=== PATIENT | female | born 1960 | race Hispanic/Latino ===

== ENCOUNTER 2024-12-02 09:54 | Emergency (ER) | payer BC ==
[~2024-12-02] VITALS: Ht 165.1 cm; Wt 85.3 kg
--- NOTE | 2024-12-02 10:08 | EKG ---
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
[2024-12-02 10:29] LABS: IMMATURE GRANULOCYTE ABSOLUTE 0.01 K/uL (0-1); NUCLEATED RED BLOOD CELLS 0.0 % (0.0-0.19); PLATELET COUNT (AUTO) 250 K/uL (130-400); RED BLOOD CELL COUNT(AUTO) 5.39 MIL/uL (4.00-5.50); RED CELL DISTRIBUTION WIDTH 11.9 % (11.0-15.5); WHITE BLOOD COUNT (AUTO) 8.0 K/uL (4.8-10.8)
[2024-12-02 10:37] LABS: APPEARANCE,URINE CLEAR (CLEAR); GLUCOSE, URINE (UA) >=1000 mg/dL (NEGATIVE); LEUKOCYTE ESTERASE ,URINE NEGATIVE Leu/uL (NEGATIVE); NITRATE,URINE NEGATIVE (NEGATIVE); OCCULT BLOOD,URINE NEGATIVE (NEGATIVE)
--- NOTE | 2024-12-02 10:40 | ERN ---
ED Note History of Present Illness Stated Complaint: ABD PAIN Chief Complaint: Abdominal Pain Time Seen by MD: 10:28 Time Seen by Midlevel: 10:10 Dictation: 64-year-old female with a history of hypertension, diabetes, cholesterol coming in with complaints of right lower quadrant pain onset Saturday. Patient states however now pain is more on the right glute radiating down her right leg. Patient states she was seen at an urgent care on Saturday at three in the morning and where they did a CT scan but told her they did not find anything. patient is denying any abdominal pain. However patient states pain is still there, also mentioned she has not had a bowel movement since Saturday, took a laxative last night and still has not had a bowel movement. Patient denies having any fever, nausea, vomiting, diarrhea, dysuria or hematuria. Allergies: Coded Allergies: iodine (Unverified Allergy, Unknown, SHORTNESS OF BREATH, 12/02/24) Past Medical History Past Medical History: Diabetes-Type II, High Cholesterol, Hypertension Surgical History: Hysterectomy Review of System Dictation Constitutional: Negative for fever,chills, and weight loss Eyes: Negative for injury, pain,redness, and discharge ENT: Negative for injury,pain or swelling Cardiovascular: Negative for chest pain, palpitations, and edema Respiratory: Negative for shortness of breath, cough, and wheezing, Abdomen/GI: Negative for abdominal pain, nausea, vomiting, diarrhea, and constipation Back: Negative for injury and pain : Negative for injury, bleeding and discharge MS/Extremity: Negative for injury and deformity, right upper glute pain radiating down the right leg Skin: Negative for rash, and discoloration Neuro: Negative for headache, weakness, numbness, tingling, and seizure Psych: Negative for suicide ideation, homicidal ideation, and hallucinations Review of Systems: was completed Initial Vital Sign VS Vital Signs Date Time Temp Pulse Resp B/P (MAP) Pulse Ox O2 Delivery O2 Flow Rate FiO2 12/02/24 09:56 98.4 84 18 181/96 98 Room Air 0 12/02/24 12:35 21 Physical Exam Dictation General: awake, alert, NAD Head/Face: Normocephalic, atraumatic Eyes: PERRL, EOMI, vision at baseline ENT: oral cavity clear, TMs clear, no signs of infection Neck: Trachea midline, supple, no nuchal rigidity Cardiovascular: RRR, normal S1/S2, No MRGs, no JVD Respiratory: CTAB, no respiratory distress, No rales or wheezes Abdomen: Soft, non-tender, non-distended, normal bowel sounds, no guarding or rebound. Skin: Warm, dry, normal turgor, no rash MS/Extremity: Pulses equal, no cyanosis, neurovascular intact, FROM Neuro: COAx4, GCS 15, strength 5/5, CN 2-12 intact, normal cerebellar exam, normal gait, Psych: Normal behavior, mood, and affect normal Results (Laboratory/Radiology) Laboratory/Radiology Laboratory Tests Test 12/02/24 10:22 12/02/24 10:23 White Blood Count 8.0 K/uL (4.8-10.8) Red Blood Count 5.39 MIL/uL (4.00-5.50) Hemoglobin 16.7 g/dL (12.0-16.0) H Hematocrit 47.0 % (36-48) Mean Corpuscular Volume 87.2 fL (79-99) Mean Corpuscular Hemoglobin 31.0 pg (27.0-33.0) Mean Corpuscular Hemoglobin Concent 35.5 g/dL (32.0-36.0) Red Cell Distribution Width 11.9 % (11.0-15.5) Platelet Count 250 K/uL (130-400) Mean Platelet Volume 11.0 fL (7.5-10.5) H Immature Granulocyte % (Auto) 0.1 % (0-1) Neutrophils (%) (Auto) 57.4 % (40.0-77.0) Lymphocytes (%) (Auto) 32.8 % (21.0-51.0) Monocytes (%) (Auto) 6.1 % (3.0-13.0) Eosinophils (%) (Auto) 2.7 % (0.0-8.0) Basophils (%) (Auto) 0.9 % (0.0-5.0) Neutrophils # (Auto) 4.6 K/uL (1.8-7.7) Lymphocytes # (Auto) 2.6 K/uL (1.0-4.8) Monocytes # (Auto) 0.5 K/uL (0.1-1.0) Eosinophils # (Auto) 0.22 K/uL (0.00-0.70) Basophils # (Auto) 0.07 K/uL (0.00-0.20) Absolute Immature Granulocyte (auto 0.01 K/uL (0-1) Nucleated Red Blood Cells 0.0 % (0.0-0.19) Sodium Level 135 mmol/L (136-145) L Potassium Level 4.7 mmol/L (3.5-5.1) Chloride Level 99 mmol/L (101-111) L Carbon Dioxide Level 30 mmol/L (21-32) Blood Urea Nitrogen 14 mg/dL (7-18) Creatinine 0.8 mg/dL (0.5-1.0) Glomerular Filtration Rate Calc 82 mL/min (>90) Random Glucose 245 mg/dL (70-105) H Total Calcium 9.6 mg/dL (8.5-10.1) Total Bilirubin 1.2 mg/dL (0.2-1.0) H Direct Bilirubin 0.2 mg/dL (0.0-0.3) Aspartate Amino Transf (AST/SGOT) 39 U/L (10-37) H Alanine Aminotransferase (ALT/SGPT) 81 U/L (12-78) H Alkaline Phosphatase 127 U/L (50-136) Troponin I High Sensitivity 6 ng/L (4-50) Total Protein 8.6 g/dL (6.0-8.3) H Albumin 4.5 g/dL (3.5-5.0) Lipase 44 U/L (16-77) Urine Color LIGHT-YELLOW (YELLOW) Urine Appearance CLEAR (CLEAR) Urine pH 5.5 (5.0-8.0) Urine Specific [place] 1.008 (1.001-1.031) Urine Protein NEGATIVE mg/dL (NEGATIVE) Urine Glucose (UA) >=1000 mg/dL (NEGATIVE) H Urine Ketones NEGATIVE mg/dL (NEGATIVE) Urine Occult Blood NEGATIVE (NEGATIVE) Urine Nitrate NEGATIVE (NEGATIVE) Urine Bilirubin NEGATIVE mg/dL (NEGATIVE) Urine Urobilinogen 0.2 mg/dL (0.2-1.0) Urine Leukocyte Esterase NEGATIVE Adela/uL Urine RBC 0-1 /HPF (0-1) Urine WBC 2-5 /HPF (0-1) H Urine Bacteria None /HPF (None Seen) Labs Reviewed?: Yes CT Scan Comment: [id number] [id number] IMAGING REPORT Signed PATIENT: NIKKI CASTILLO MR#: [id number] : 1960 SEX: F AGE: 64 LOCATION: [facility] ORDER 35 STATUS: REG ER REPORT#: [id number] SERVICE 103 REASON: rlq pain ORDERING PHYSICIAN: TARIK DONAHUE CNP PROCEDURE: ABD PEL WO - CT ABDOMEN/PELVIS W/O CONTRAST EXAM: CT Abdomen and Pelvis Without IV contrast CLINICAL HISTORY: rlq pain TECHNIQUE: Axial computed tomography images of the abdomen and pelvis without intravenous contrast. CONTRAST: No IV contrast. COMPARISON: None provided. FINDINGS: LUNG BASES: The lung bases appear clear. No pleural effusions are seen. LIVER: Unremarkable. GALLBLADDER AND BILE DUCTS: The gallbladder appears within normal limits. No radioopaque gallstones are seen. No biliary ductal dilatation is evident. PANCREAS: Unremarkable. SPLEEN: Unremarkable. ADRENAL GLANDS: Unremarkable. KIDNEYS, URETERS, AND BLADDER: The kidneys appear within normal limits. There is no hydronephrosis or hydroureter. No urinary calculi are seen. STOMACH AND BOWEL: Unremarkable appearance of the stomach and bowel. No evidence of bowel obstruction. No evidence suggesting enteritis or colitis. APPENDIX: No evidence of acute appendicitis on CT examination. PERITONEUM: No free fluid. No free air. LYMPH NODES: No lymphadenopathy is evident. REPRODUCTIVE: The uterus is surgically absent. No adnexal lesion. VASCULATURE: No evidence of abdominal aortic aneurysm. BONES: Degenerative changes along the visualized spine. No aggressive appearing osseous lesion. No acute osseous pathology evident. IMPRESSION: 1. No acute intraabdominal or pelvic pathology. /[place] DICTATED BY: DIAN ANSARI Jr., MD DATE: 12/02/241255 ELECTRONICALLY SIGNED BY: DIAN ANSARI Jr., MD DATE: 12/02/241255 ED Course ED Course Orders Procedure Category Date Status Time 12 Lead Ekg Tracing- EKG 12/02/24 Complete Technical 10:00 Basic Metabolic Panel LAB 12/02/24 Complete 10:00 Cbc With Differential LAB 12/02/24 Complete 10:00 Hepatic Function Panel LAB 12/02/24 Complete 10:00 Lipase LAB 12/02/24 Complete 10:00 Troponin I High LAB 12/02/24 Complete Sensitivity 10:00 Urinalysis Profile LAB 12/02/24 Complete 10:00 Ct Abdomen/Pelvis W/O CT 12/02/24 Resulted Contrast 10:36 0.9%Nacl 1000ml (Ns PHA 12/02/24 Complete 1000ml) 10:36 Ketorolac PHA 12/02/24 Complete Tromethamine 15mg/Ml 10:36 Current Medications Medications (Trade) Dose Ordered Sig/Melissa Route PRN Reason Start Time Stop Time Status Last Admin Dose Admin Ketorolac Tromethamine (toRADol) 15 mg ONCE STAT IV 12/02/24 10:36 12/02/24 10:41 DC Sodium Chloride 1,000 ml @ 1,000 mls/hr Q1H STAT IV 12/02/24 10:36 12/02/24 11:35 DC Vital Signs Date Time Temp Pulse Resp B/P (MAP) Pulse Ox O2 Delivery O2 Flow Rate FiO2 12/02/24 12:35 97.9 77 18 168/86 98 Room Air* 0 21 12/02/24 09:56 98.4 84 18 181/96 98 Room Air 0 Medical Decision Making MDM MDM: 64-year-old female with a history of hypertension, diabetes, cholesterol coming in with complaints of right lower quadrant pain onset Saturday. Patient states however now pain is more on the right glute radiating down her right leg. Patient states she was seen at an urgent care on Saturday at three in the morning and where they did a CT scan but told her they did not find anything. Time patient is denying any abdominal pain. However patient states pain is still there, also mentioned she has not had a bowel movement since Saturday, took a laxative last night and still has not had a bowel movement. Patient denies having any fever, nausea, vomiting, diarrhea, dysuria, hematuria. CBC shows no leukocytosis, no anemia, no thrombocytopenia. Chemistry shows elevated blood glucose of 245. Normal kidney function. Very mild elevated AST at 39 and ALT 81. Lipase within normal range. UA shows no evidence of urinary tract infection or hematuria. CT scan shows no acute finding. Discussed findings with the patient. Educated patient to the findings more than likely this would be more musculoskeletal or sciatica needs to follow up outpatient with PCP. Patient verbalized understanding, answered all questions. Differential diagnosis: In his leg he is, urinary tract infection, muscle spasm, sciatica Rationale: Tests considered and ordered secondary to shared decision making include: Previous outside records reviewed: Old ER visits. Risk of complication and/or morbidity or mortality of patient management: None Medications-Per medication reconciliation Need for hospitalization: Patient does not meet criteria for hospitalization. Need for emergency major/minor surgery: No There are no social concerns with this patient. Prescription drug management Prescriptions will include symptomatic care Patient's prior external medical records from other ER visits were reviewed by me as indicated. Prior testing and results from previous visits were reviewed. Prior tests were taken into account with medical decision making and resource utilization, independent historian/historians were used to obtain complete medical history. I independently interpreted the test that were performed, results were reviewed by me and considered findings on radiology if ordered. Medical management and examination interpretation discussions were had by me with other qualified healthcare professionals as indicated for the patient's care. DX & DISP Disposition: Discharge Departure Impression: Primary Impression: Back pain with sciatica Additional Impression: Constipation Condition: Stable Scripts Polyethylene Glycol 3350 (Miralax) 17 Gram Powd.pack 1 PACKET PO DAILY for constipation, #30 PACKET 0 Refills dissolve in water Prov: TARIK DONAHUE CNP 12/02/24 Referrals: SELF,REFERRAL (PCP) Time of Disposition: 13:09 I have reviewed the case, and I agree with, Diagnosis and Plan TARIK DONAHUE CNP Dec 02, 2024 10:40
[2024-12-02 10:46] LABS: ASPARTATE AMINOTRANSFERASE 39.0 U/L (10-37); CREATININE 0.8 mg/dL (0.5-1.0); GLOMERULAR FILTR. RATE CALC 82.0 mL/min (>90); GLUCOSE,RANDOM 245.0 mg/dL (70-105); SODIUM SERUM 135.0 mmol/L (136-145); TOTAL PROTEIN, SERUM 8.6 g/dL (6.0-8.3); UREA NITROGEN, BLOOD 14.0 mg/dL (7-18)
[2024-12-02 10:47] LABS: ADD UA MICROSCOPIC YES
--- NOTE | 2024-12-02 11:57 | HMCIMG ---
EXAM: CT Abdomen and Pelvis Without IV contrast CLINICAL HISTORY: rlq pain TECHNIQUE: Axial computed tomography images of the abdomen and pelvis without intravenous contrast. CONTRAST: No IV contrast. COMPARISON: None provided. FINDINGS: LUNG BASES: The lung bases appear clear. No pleural effusions are seen. LIVER: Unremarkable. GALLBLADDER AND BILE DUCTS: The gallbladder appears within normal limits. No radioopaque gallstones are seen. No biliary ductal dilatation is evident. PANCREAS: Unremarkable. SPLEEN: Unremarkable. ADRENAL GLANDS: Unremarkable. KIDNEYS, URETERS, AND BLADDER: The kidneys appear within normal limits. There is no hydronephrosis or hydroureter. No urinary calculi are seen. STOMACH AND BOWEL: Unremarkable appearance of the stomach and bowel. No evidence of bowel obstruction. No evidence suggesting enteritis or colitis. APPENDIX: No evidence of acute appendicitis on CT examination. PERITONEUM: No free fluid. No free air. LYMPH NODES: No lymphadenopathy is evident. REPRODUCTIVE: The uterus is surgically absent. No adnexal lesion. VASCULATURE: No evidence of abdominal aortic aneurysm. BONES: Degenerative changes along the visualized spine. No aggressive appearing osseous lesion. No acute osseous pathology evident. IMPRESSION: 1. No acute intraabdominal or pelvic pathology. /[place]
[2024-12-02 12:35] VITALS: BP 168/86; PULSE 77; RESP 18; TEMP 97.9; O2SAT 98
[2024-12-02] MEDS ORDERED: POLY17PO4 PO (13:10)
[2024-12-02] MEDS: 0.9%NACL 1000ML 1,000 ML IV STA (13:45)
[2024-12-02] MEDS: LIDOCAINE 4% ADH..PATCH TP STA (13:45)
--- NOTE | 2024-12-02 14:00 | NUR ---
FLEET ENEMA GIVEN
== END 2024-12-02 18:41 | disposition home or self-care (01) ==
LOC: EDH 09:54
DX: K59.00 Constipation, unspecified (principal); M54.30 Sciatica, unspecified side; E11.9 Type 2 diabetes mellitus without complications; E78.00 Pure hypercholesterolemia, unspecified; I10 Essential (primary) hypertension; Z88.8 Allergy status to other drugs, medicaments and biological substances; Z90.710 Acquired absence of both cervix and uterus
CPT/HCPCS: 99284; 74176; 96374; 96361; 80076; 84484; 80048; 83690; 85025; 81001; 36415; 93005; J1885; J7030